=== PATIENT | female | born 1985 | race Caucasian/White ===

== ENCOUNTER 2017-08-31 09:56 | Outpatient (CLI) | payer OTHER ==
[2017-08-31 10:27] LABS: BHCG - Serum Negative (NEGATIVE); Pregs Control Background? CLEAR/WHITE (CLR/WHITE); Pregs Control Bar Appear? YES (CONTROL BAR)
== END 2017-08-31 09:57 | disposition home or self-care (01) ==
LOC: MADLAB 09:56
DX: Z00.00 Encounter for general adult medical examination without abnormal findings (principal)
CPT/HCPCS: 84703

== ENCOUNTER 2018-07-26 07:48 | Outpatient (CLI) | payer OTHER | END 2018-07-26 07:49 | disposition home or self-care (01) | LOC: MADLABBHPM 07:48 | PROVIDERS: ATTEND Family Medicine | DX: Z34.83 Encounter for supervision of other normal pregnancy, third trimester (principal) | CPT/HCPCS: 36415; 82951; 82952 ==

== ENCOUNTER 2021-07-09 22:36 | Emergency (ER) | payer OTHER, SELFPAY ==
[2021-07-09] MEDS ORDERED: Boostrix 0.5 ML (Tdap) VIAL ONE (23:27)
[2021-07-10] MEDS ORDERED: Acetaminophen 325 MG TAB ONE (00:11)
== END 2021-07-10 00:24 | disposition home or self-care (01) ==
LOC: MADERS 22:36
DX: S01.81XA Laceration without foreign body of other part of head, initial encounter (principal); S16.1XXA Strain of muscle, fascia and tendon at neck level, initial encounter; S29.012A Strain of muscle and tendon of back wall of thorax, initial encounter; F17.210 Nicotine dependence, cigarettes, uncomplicated; Z23 Encounter for immunization; W19.XXXA Unspecified fall, initial encounter
CPT/HCPCS: 12011; 70450; 70486; 72125; 72128; 90471; 90715

== ENCOUNTER 2023-02-08 21:40 | Emergency (ER) | payer OTHER | END 2023-02-08 22:30 | disposition home or self-care (01) | LOC: MADERS 21:40 | DX: O9A.213 Injury, poisoning and certain other consequences of external causes complicating pregnancy, third trimester (principal); S13.4XXA Sprain of ligaments of cervical spine, initial encounter; V49.50XA Passenger injured in collision with unspecified motor vehicles in traffic accident, initial encounter; Z3A.28 28 weeks gestation of pregnancy | CPT/HCPCS: 99283 ==